=== PATIENT | female | born 1995 | race Two or more races ===

== ENCOUNTER 2020-11-06 09:33 | Emergency (ER) | payer BC ==
[~2020-11-06] VITALS: Ht 154.9 cm; Wt 118.2 kg
[2020-11-06 09:38] VITALS: Ht 154.9 cm; Wt 118.2 kg
[2020-11-06] MEDS ORDERED: VISTARIL50 MG PO (09:54)
[2020-11-06 10:00] VITALS: BP 145/95
== END 2020-11-06 10:18 | disposition home or self-care (01) ==
LOC: D.ER 09:33
DX: F41.9 Anxiety disorder, unspecified (principal); R42 Dizziness and giddiness